=== PATIENT | female | born 2000 | race African-American/Black ===

== ENCOUNTER 2022-06-22 18:16 | Day surgery (SDC) ==
[2022-06-22 18:45] VITALS: BMI 24.2
== END 2022-06-22 19:44 | disposition home or self-care (01) ==
LOC: CSHLD/OP 18:16
PROVIDERS: ATTEND Obstetrics & Gynecology
DX: O47.1 False labor at or after 37 completed weeks of gestation (principal); Z3A.37 37 weeks gestation of pregnancy

== ENCOUNTER 2022-07-04 12:39 | Inpatient (IN) | payer MEDICAID, OTHER ==
[2022-07-04] MEDS ORDERED: Promethazine HCl 25 MG/ML VIAL IM PRN (17:45)
[2022-07-04] MEDS ORDERED: Ibuprofen 800 MG TAB PO PRN (17:45)
[2022-07-04] MEDS ORDERED: Lidocaine 1% (PF) 30 ML VIAL SC PRN ×2 (17:45→19:29)
[2022-07-04] MEDS ORDERED: hydrALAZINE 20 MG/ML VIAL SLOW IVP PRN (17:45)
[2022-07-04] MEDS ORDERED: Ondansetron PF 4 MG/2 ML Vial IVP PRN (17:45)
[2022-07-04] MEDS ORDERED: Misoprostol 100 MCG TAB VAG SCH (17:45)
[2022-07-04] MEDS ORDERED: NS w/ Oxytocin 30 units 500 ML IV SCH ×3 (17:45→19:30)
[2022-07-04 18:48] VITALS: BMI 25.7
[2022-07-04] MEDS ORDERED: Penicillin G Potassium 5 MILL.UNITS VIAL ONE (19:25)
[2022-07-04] MEDS ORDERED: Penicillin G Potassium 5 MILL.UNITS in Sodium Chloride 0.9% 100 ML IVPB SCH (19:30)
[2022-07-04 19:45] LABS: Hemoglobin 8.5 g/dL (12.0-15.5); Mean Corpuscular HGB CONC 31.5 g/dL (32.0-36.0); Mean Corpuscular Hemoglobin 23.2 pg (27.0-33.0); Mean Corpuscular Volume 73.6 fl (81.6-98.3); Mean Platelet Volume 13.5 fl (7.4-10.4); Platelet Count 159 10x3/uL (150-450); RBC Distribution Width 14.7 % (11.5-14.5); Red Blood Cell (RBC) Count 3.67 10x6/uL (3.90-5.03)
[2022-07-04 20:07] LABS: HBSAg Index 0.25 S/CO (0-0.99); Hep B Surf Ag Non-Reactive S/CO (NonReactive)
[2022-07-04 20:09] LABS: Syphilis Antibody Nonreactive (Nonreactive); Syphilis Antibody Index 0.04 S/CO (<1.00 Non-Reactive)
[2022-07-04] MEDS: Butorphanol Tartrate 1 MG/ML VIAL SLOW IVP PRN ×2 (21:28→23:00)
[2022-07-04] MEDS ORDERED: Lidocaine 1% (PF) 30 ML VIAL ONE (23:31)
[2022-07-04] MEDS ORDERED: Misoprostol 200 MCG TAB ONE (23:31)
[2022-07-04] MEDS ORDERED: Methylergonovine 0.2 MG/ML VIAL ONE (23:32)
[2022-07-05] MEDS: Butorphanol Tartrate 1 MG/ML VIAL SLOW IVP PRN (00:36)
[2022-07-05] MEDS ORDERED: Penicillin G 2.5 MILL.units 2.5 MILL.UNITS in Premix Bag 1 BAG IVPB SCH (01:00)
[2022-07-05] MEDS ORDERED: Ondansetron PF 4 MG/2 ML Vial IVP PRN (03:28)
[2022-07-05] MEDS ORDERED: Bisacodyl 10 MG SUPP PR PRN (03:28)
[2022-07-05] MEDS ORDERED: Benzocaine-Menthol 82.5 ML CAN TOP PRN (03:28)
[2022-07-05] MEDS ORDERED: Boostrix 0.5 ML (Tdap) VIAL (>/=7 yrs of age) IM ONE (03:28)
[2022-07-05] MEDS ORDERED: Methylergonovine 0.2 MG/ML VIAL IM PRN (03:28)
[2022-07-05] MEDS ORDERED: Milk Of Magnesia 30 ML UDCUP PO PRN (03:28)
[2022-07-05] MEDS ORDERED: Lanolin Ointment 7 GM TUBE TOP PRN (03:28)
[2022-07-05] MEDS ORDERED: Misoprostol 200 MCG TAB VAG PRN (03:28)
[2022-07-05] MEDS ORDERED: Preparation H Ointment 28 GM TUBE PR PRN (03:28)
[2022-07-05] MEDS ORDERED: hydrALAZINE 20 MG/ML VIAL SLOW IVP PRN (03:28)
[2022-07-05] MEDS ORDERED: Promethazine HCl 25 MG/ML VIAL IM PRN (03:28)
[2022-07-05] MEDS ORDERED: NS w/ Oxytocin 30 units 500 ML IV SCH (03:28)
[2022-07-05] MEDS ORDERED: diphenhydrAMINE 25 MG CAP PO PRN (03:28)
[2022-07-05] MEDS ORDERED: Ibuprofen 800 MG TAB PO SCH (06:00)
[2022-07-05] MEDS ORDERED: Acetaminophen 650 MG/20.3 ML UDCUP PO PRN (06:57)
[2022-07-05] MEDS ORDERED: Acetaminophen 650 MG/20.3 ML UDCUP PO SCH (08:00)
[2022-07-05] MEDS: Ferrous Sulfate 325 MG TAB PO SCH ×2 (08:09→18:46)
[2022-07-05] MEDS: Docusate 100 MG CAP PO SCH (08:36)
[2022-07-05] MEDS: Prenatal Vitamin 1 TAB PO SCH (08:37)
[2022-07-05] MEDS ORDERED: Ibuprofen 200 MG/10 ML ORAL.SUSP PO SCH (11:00)
[2022-07-05] MEDS: Ibuprofen 200 MG/10 ML ORAL.SUSP PO SCH ×2 (11:30→18:46)
[2022-07-06] MEDS: Ibuprofen 200 MG/10 ML ORAL.SUSP PO SCH ×4 (01:55→12:46)
[2022-07-06] MEDS: Docusate 100 MG CAP PO SCH ×2 (01:58→08:01)
[2022-07-06] MEDS: Prenatal Vitamin 1 TAB PO SCH (08:02)
[2022-07-06] MEDS: Ferrous Sulfate 325 MG TAB PO SCH (08:08)
[2022-07-06 08:40] VITALS: BP 117/64; TEMP 98.1
== END 2022-07-06 14:20 | disposition home or self-care (01) | DRG 806 ==
LOC: CSHLD 17:36 → CSHPP 07-05 03:20
PROVIDERS: ADMIT Family Medicine; ATTEND Family Medicine
PROC: 10E0XZZ Delivery of Products of Conception, External Approach (ICD-10-PCS; principal; 2022-07-04)
PROC: 0KQM0ZZ Repair Perineum Muscle, Open Approach (ICD-10-PCS; 2022-07-04)
DX: O36.5930 Maternal care for other known or suspected poor fetal growth, third trimester, not applicable or unspecified (principal); O98.52 Other viral diseases complicating childbirth; Z37.0 Single live birth; O70.1 Second degree perineal laceration during delivery; O99.824 Streptococcus B carrier state complicating childbirth; Z3A.38 38 weeks gestation of pregnancy; D50.9 Iron deficiency anemia, unspecified; O99.02 Anemia complicating childbirth; B00.9 Herpesviral infection, unspecified
CPT/HCPCS: 36415; 85027; 86780; 86850; 86900; 86901; 87340; J0595; J2001; J2540; J2590